=== PATIENT | female | born 1925 | race Caucasian/White ===

== ENCOUNTER 2016-04-26 18:21 | Inpatient (IN) | payer MEDICARE, OTHER ==
[~2016-04-26] VITALS: Ht 154.9 cm; Wt 56.7 kg
[~2016-04-26 18:21] MED LIST: ASPI-605 PO; DULO20CA PO
[2016-04-26] MEDS ORDERED: IV NS 0.9% 500 ML IV ONE (18:26)
[2016-04-26] MEDS ORDERED: IV NS 0.9% 500 ML BAG IV ONE (18:30)
[2016-04-26] MEDS ORDERED: DILTIAZEM HCL 25 MG IV ONE ×2 (18:33→19:12)
[2016-04-26 18:54] LABS: BASOPHILS # (AUTO) 0.1 /CMM (0.0-0.2); BASOPHILS % (AUTO) 0.2 % (0.0-2.0); DIFF TOTAL % 100 %; EOSINOPHILS # (AUTO) 0.2 /CMM (0.0-0.7); EOSINOPHILS % (AUTO) 0.3 % (0.0-6.0); HEMATOCRIT 35 % (33-45); LYMPHOCYTES # (AUTO) 53.8 /CMM (0.8-4.8); LYMPHOCYTES % (AUTO) 88.6 % (20.0-44.0); MEAN CORPUSCULAR HEMOGLOBIN 30 PG (26.0-33.0); MEAN CORPUSCULAR HGB CONC 32 g/dl (31.0-36.0); MEAN CORPUSCULAR VOLUME 94 fL (82-100); MONOCYTES % (AUTO) 3.2 % (2.0-12.0); NEUTROPHILS # (AUTO) 4.7 /CMM (1.8-8.9); NEUTROPHILS % (AUTO) 7.7 % (43.0-81.0); PLATELET COUNT (AUTO) 223 /CMM (150-450)
[2016-04-26] MEDS ORDERED: SOLI5TAB PO (18:55)
[2016-04-26] MEDS ORDERED: LOSA25TA13 PO (18:55)
[2016-04-26] MEDS ORDERED: DILTIAZEM HCL 25 MG IV IV ONE (19:00)
[2016-04-26] MEDS ORDERED: DILTIAZEM HCL IV 125 MG in IV D5W 100 ML IV PRN (19:00)
[2016-04-26 19:07] LABS: CALCIUM, SERUM 9.2 mg/dL (8.5-10.1); CREATININE 1.6 mg/dL (0.6-1.3); POTASSIUM 4.6 mmol/L (3.5-5.1); WHITE BLOOD COUNT (AUTO) 60.7 K/uL (4.3-11.0)
[2016-04-26] MEDS ORDERED: IV SET PRIMARY PUMP SET 1 EA INFUS.SET MC ONE ×2 (19:11→22:41)
[2016-04-26 19:12] LABS: INR 1.16 (0.87-1.13); PROTHROMBIN TIME 12.5 SECS (9.5-12.7)
[2016-04-26] MEDS ORDERED: DILTIAZEM HCL 50 MG IV ONE (19:12)
[2016-04-26 19:13] LABS: TROPONIN I 0.022 ng/mL (0.00-0.056)
[2016-04-26 19:14] LABS: ALBUMIN 3.3 g/dL (3.4-5.0); BILIRUBIN,DIRECT 0.2 mg/dL (0.0-0.2); BILIRUBIN,TOTAL 1.1 mg/dL (0.2-1.0); INDIRECT BILIRUBIN 0.9 mg/dL (0.0-1.1); TOTAL PROTEIN, SERUM 6.6 g/dL (6.4-8.2)
[2016-04-26 19:21] LABS: ANISOCYTOSIS 1+; PLATELET ESTIMATE ADEQUATE; POIKILOCYTOSIS RARE
[2016-04-26 19:23] LABS: LYMPHOCYTES % (MANUAL) 88 % (16-48); OVALOCYTES RARE
[2016-04-26] MEDS ORDERED: ACETAMINOPHEN 325 MG TABLET PO PRN (22:30)
[2016-04-26] MEDS ORDERED: ENOXAPARIN SODIUM 40 MG/0.4 ML DISP.SYRIN SQ SCH (22:30)
[2016-04-26] MEDS ORDERED: DILTIAZEM HCL CD 240 MG PO SCH (22:30)
[2016-04-26] MEDS ORDERED: MORPHINE SULFATE INJ 2 MG/ML DISP.SYRIN IV PRN (22:30)
[2016-04-26] MEDS ORDERED: Z GUARD REMEDY 2 OZ OINT TP PRN (22:30)
[2016-04-26] MEDS ORDERED: ZOLPIDEM TARTRATE 5 MG TABLET PO PRN (22:30)
[2016-04-26] MEDS ORDERED: ONDANSETRON HCL/PF 4 MG/2 ML VIAL IVP PRN (22:30)
[2016-04-26] MEDS ORDERED: IV NS 0.9% 1,000 ML ONE (22:41)
[2016-04-26] MEDS ORDERED: DILTIAZEM HCL CD 120 MG PO ONE (22:43)
[2016-04-26] MEDS: IV NS 0.9% 1,000 ML IV PRN (22:46)
[2016-04-26] MEDS: DILTIAZEM HCL CD 120 MG PO SCH (23:13)
[2016-04-27] VITALS (10 sets, daily range): BP systolic 131–159; BP diastolic 69–88
[2016-04-27 07:19] LABS: BASOPHILS # (AUTO) 0.1 /CMM (0.0-0.2); BASOPHILS % (AUTO) 0.2 % (0.0-2.0); DIFF TOTAL % 100 %; EOSINOPHILS # (AUTO) 0.1 /CMM (0.0-0.7); EOSINOPHILS % (AUTO) 0.2 % (0.0-6.0); HEMATOCRIT 33 % (33-45); HEMOGLOBIN 10.6 g/dL (11.5-14.8); LYMPHOCYTES # (AUTO) 47.1 /CMM (0.8-4.8); LYMPHOCYTES % (AUTO) 83.9 % (20.0-44.0); MEAN CORPUSCULAR HEMOGLOBIN 30 PG (26.0-33.0); MEAN CORPUSCULAR HGB CONC 33 g/dl (31.0-36.0); MEAN CORPUSCULAR VOLUME 93 fL (82-100); MONOCYTES % (AUTO) 7.1 % (2.0-12.0); NEUTROPHILS # (AUTO) 4.8 /CMM (1.8-8.9); NEUTROPHILS % (AUTO) 8.6 % (43.0-81.0); PLATELET COUNT (AUTO) 191 /CMM (150-450); RED BLOOD CELL COUNT(AUTO) 3.52 MIL/uL (4.0-5.2)
[2016-04-27 07:44] LABS: WHITE BLOOD COUNT (AUTO) 56.2 K/uL (4.3-11.0)
[2016-04-27 07:48] LABS: ALBUMIN 3.1 g/dL (3.4-5.0); BILIRUBIN,TOTAL 1.1 mg/dL (0.2-1.0); CALCIUM, SERUM 8.6 mg/dL (8.5-10.1); CREATININE 1.5 mg/dL (0.6-1.3); PHOSPHORUS 3.5 mg/dL (2.5-4.9); POTASSIUM 4.3 mmol/L (3.5-5.1); TOTAL PROTEIN, SERUM 6.3 g/dL (6.4-8.2)
[2016-04-27 07:53] LABS: LYMPHOCYTES % (MANUAL) 80 % (16-48); PLATELET ESTIMATE ADEQUATE
[2016-04-27 07:54] LABS: ANISOCYTOSIS 1+; POIKILOCYTOSIS RARE
[2016-04-27 07:58] LABS: THYROID STIMULATING HORMONE 4.893 uIU/mL (0.358-3.74)
[2016-04-27] MEDS: LOSARTAN POTASSIUM 25 MG TABLET PO SCH (08:16)
[2016-04-27] MEDS: DILTIAZEM HCL CD 120 MG PO SCH (08:17)
[2016-04-27] MEDS ORDERED: APIXABAN 2.5 MG TABLET PO SCH (09:30)
[2016-04-27] MEDS: DRONEDARONE HYDROCHLORIDE 400 MG TABLET PO SCH ×2 (11:25→17:09)
[2016-04-27] MEDS: NEOMY SULF/BACITRAC ZN/POLY 15 GM TUBE TP SCH (14:26)
[2016-04-27 15:15] LABS: SMEAR TO PATH YES (NO)
[2016-04-27] MEDS: RIVAROXABAN 15 MG TABLET PO SCH (17:12)
[2016-04-27] MEDS ORDERED: ENOXAPARIN SODIUM 30 MG/0.3 ML DISP.SYRIN SQ SCH (21:00)
[2016-04-27] MEDS: IV NS 0.9% 1,000 ML IV PRN (21:24)
[2016-04-28 01:00] VITALS: BP 120/80
[2016-04-28 05:30] VITALS: BP 134/80
[2016-04-28 07:11] LABS: BASOPHILS # (AUTO) 0.1 /CMM (0.0-0.2); BASOPHILS % (AUTO) 0.1 % (0.0-2.0); DIFF TOTAL % 100 %; EOSINOPHILS # (AUTO) 0.1 /CMM (0.0-0.7); EOSINOPHILS % (AUTO) 0.2 % (0.0-6.0); HEMATOCRIT 31 % (33-45); HEMOGLOBIN 10.5 g/dL (11.5-14.8); LYMPHOCYTES % (AUTO) 84.5 % (20.0-44.0); MEAN CORPUSCULAR HEMOGLOBIN 35 PG (26.0-33.0); MEAN CORPUSCULAR HGB CONC 34 g/dl (31.0-36.0); MEAN CORPUSCULAR VOLUME 101 fL (82-100); MONOCYTES # (AUTO) 2.6 /CMM (0.1-1.30); NEUTROPHILS # (AUTO) 7.1 /CMM (1.8-8.9); NEUTROPHILS % (AUTO) 11.2 % (43.0-81.0); PLATELET COUNT (AUTO) 187 /CMM (150-450); RED BLOOD CELL COUNT(AUTO) 3.04 MIL/uL (4.0-5.2)
[2016-04-28 07:28] LABS: WHITE BLOOD COUNT (AUTO) 63.9 K/uL (4.3-11.0)
[2016-04-28 07:37] LABS: TROPONIN I 0.039 ng/mL (0.00-0.056)
[2016-04-28 07:40] LABS: BILIRUBIN,TOTAL 1.4 mg/dL (0.2-1.0); CALCIUM, SERUM 7.9 mg/dL (8.5-10.1); CREATININE 1.4 mg/dL (0.6-1.3); PHOSPHORUS 2.5 mg/dL (2.5-4.9); POTASSIUM 4.4 mmol/L (3.5-5.1); TOTAL PROTEIN, SERUM 6.1 g/dL (6.4-8.2)
[2016-04-28 08:00] VITALS: BP 160/79
[2016-04-28] MEDS: DRONEDARONE HYDROCHLORIDE 400 MG TABLET PO SCH ×2 (08:20→16:42)
[2016-04-28] MEDS: NEOMY SULF/BACITRAC ZN/POLY 15 GM TUBE TP SCH (08:20)
[2016-04-28] MEDS: DILTIAZEM HCL CD 120 MG PO SCH (08:21)
[2016-04-28] MEDS: LOSARTAN POTASSIUM 25 MG TABLET PO SCH (08:21)
[2016-04-28] MEDS: IV NS 0.9% 1,000 ML IV PRN (09:01)
[2016-04-28 10:36] LABS: ANISOCYTOSIS 1+; LYMPHOCYTES % (MANUAL) 88 % (16-48); PLATELET ESTIMATE ADEQUATE
[2016-04-28] MEDS ORDERED: DRON400T2 PO (12:59)
[2016-04-28] MEDS ORDERED: Rivaroxaban PO (12:59)
[2016-04-28] MEDS ORDERED: DILT120C87 PO (12:59)
[2016-04-28 16:00] VITALS: BP 130/69
[2016-04-28] MEDS: RIVAROXABAN 15 MG TABLET PO SCH (16:43)
[2016-04-28] MEDS ORDERED: MAGNESIUM HYDROXIDE 30 ML UDC PO PRN (21:00)
[2016-04-28 23:29] VITALS: BP 136/76
[2016-04-29 08:14] VITALS: BP 156/79
[2016-04-29] MEDS: DRONEDARONE HYDROCHLORIDE 400 MG TABLET PO SCH ×2 (09:40→17:38)
[2016-04-29] MEDS: DILTIAZEM HCL CD 120 MG PO SCH (09:41)
[2016-04-29] MEDS: LOSARTAN POTASSIUM 25 MG TABLET PO SCH (09:41)
[2016-04-29 10:00] VITALS: BP_SYST 139; BP_SYST 153; BP_DIAS 73; BP_DIAS 76
[2016-04-29] MEDS: NEOMY SULF/BACITRAC ZN/POLY 15 GM TUBE TP SCH (10:40)
[2016-04-29 16:17] VITALS: BP 97/60
[2016-04-29 16:39] VITALS: BP 110/55
[2016-04-29] MEDS: RIVAROXABAN 15 MG TABLET PO SCH (17:39)
== END 2016-04-29 19:00 | disposition home health service (06) | DRG 280 ==
LOC: ER 18:22 → TELE 20:13 → MED 04-28 09:14
PROVIDERS: ADMIT Nurse Practitioner Acute Care; ATTEND Nurse Practitioner Acute Care
DX: I48.91 Unspecified atrial fibrillation (principal); N17.0 Acute kidney failure with tubular necrosis; I21.4 Non-ST elevation (NSTEMI) myocardial infarction; J96.91 Respiratory failure, unspecified with hypoxia; C91.10 Chronic lymphocytic leukemia of B-cell type not having achieved remission; I25.10 Atherosclerotic heart disease of native coronary artery without angina pectoris; M19.90 Unspecified osteoarthritis, unspecified site; I11.9 Hypertensive heart disease without heart failure; Z91.81 History of falling
CPT/HCPCS: 36415; 71010-TC; 80048-TC; 80053-TC; 80061-TC; 80076-TC; 83735-TC; 84100-TC; 84443-TC; 84484-TC; 85025-TC; 85730-TC; 87081-TC; 93307-TC; 94799-TC; 97001-TC; A4606; J3490; J7030; J7040; J7060; Z7610